=== PATIENT | female | born 1985 | race Caucasian/White ===

== ENCOUNTER 2021-08-18 11:41 | Emergency (ER) | payer BC, SELFPAY ==
[2021-08-18 11:59] VITALS: BP 123/66; PULSE 96; RESP 18; TEMP 37.1; O2SAT 100
--- NOTE | 2021-08-18 12:36 | ED.GENADULT ---
HPI - General Adult General Chief complaint: Ear Stated complaint: sorethroat,bilateral ear pain Source: patient Mode of arrival: ambulatory Limitations: no limitations History of Present Illness HPI narrative: Patient is a 35-year-old female who presents to the [facility] via POV for evaluation of upper respiratory symptoms that have been present for approximately 3 days. Additionally, she reports hoarseness, left-sided throat pain, and right-sided ear pain. She states her throat pain is scratchy in nature and ear pain is burning in nature. OTC meds provide some relief. Symptoms worsen at night. Related Data Home Medications Medication Instructions Recorded Confirmed drospirenone-ethinyl estradiol 1 tablet PO DAILY 08/18/21 08/18/21 Allergies Allergy/AdvReac Type Severity Reaction Status Date / Time No Known Allergies Allergy Verified 08/18/21 12:24 Review of Systems Review of Systems: Denies fever, chills, sweats, change in appetite, myalgias, headaches, dizziness, sinus problems, hearing difficulty, tinnitus, vertigo, nasal drainage, sneezing, drooling, difficulty swallowing, cough, wheezing, shortness of breath, abdominal pain, nausea, vomiting, diarrhea, chest pain, heart palpitation PMFSH Past Medical History Medical History (Updated 08/18/21 @ 13:09 by Stephenie Chin, EXECUTIVE CONSULTANT, ) Anemia Comments I have reviewed and agree with the patient's past medical, surgical, social, and family hx as documented by the RN. There is no relevant family history pertinent to the presenting complaint. Exam Narrative: GENERAL: Well-appearing, well-nourished, and in no acute distress. Appears fatigued HEAD: Normocephalic, atraumatic. No sinus tenderness or facial swelling appreciated. EYES: PERRLA and EOMI. No evidence of erythema, swelling, or drainage. ENT: Bilateral external ears and ear canals normal. Bilateral TMs are normal.No TM perforation. Nares clear, no rhinorrhea or epistaxis. Bilateral turbinates without erythema/ swelling. Mucous membranes moist and pink. Uvula is midline without erythema and swelling. Moderate erythema and swelling noted to left tonsil otherwise posterior pharynx is normal. Breath odor normal. Voice is mildly hoarse NECK: Supple. No Lymphadenopathy or nuchal rigidity appreciated. CHEST: Bilateral lung bean are clear to auscultation. No respiratory distress. No evidence of cough or pleuritic cp upon examination. HEART: Regular rate and rhythm. No murmur, gallop, or rub heard. EXTREMITIES: Normal range of motion. No edema. SKIN: Warm, dry, no rash. NEURO: No focal deficits. Alert and oriented x3. Course Course Level of Care: Express Care Visit Vital Signs Vital signs: Vital Signs Temperature 98.7 F 08/18/21 11:59 Pulse Rate 96 08/18/21 11:59 Respiratory Rate 18 08/18/21 11:59 Blood Pressure 123/66 08/18/21 11:59 Pulse Oximetry 100 08/18/21 11:59 Temperature 98.7 F 08/18/21 11:59 Pulse Rate 96 08/18/21 11:59 Respiratory Rate 18 08/18/21 11:59 Blood Pressure 123/66 08/18/21 11:59 Pulse Oximetry 100 08/18/21 11:59 Reviewed Medical Decision Making MDM Narrative Medical decision making narrative: EAR IRRIGATION NOT PERFORMED THEREFORE PEROXIDE WAS NOT USED. Differential Diagnosis Differential Diagnosis: Allergic rhinitis, ABRS, acute viral sinusitis, strep pharyngitis, nasopharyngitis, bronchitis, pneumonia, AOM, otitis externa, viral URI, influenza, covid-19 Medical Records Medical records reviewed: Yes I reviewed the external patient's medical records. Vital Signs Vital Signs: Vital Signs Temperature 98.7 F 08/18/21 11:59 Pulse Rate 96 08/18/21 11:59 Respiratory Rate 18 08/18/21 11:59 Blood Pressure 123/66 08/18/21 11:59 Pulse Oximetry 100 08/18/21 11:59 Temperature 98.7 F 08/18/21 11:59 Pulse Rate 96 08/18/21 11:59 Respiratory Rate 18 08/18/21 11:59 Blood Pressure 123/66 08/18/21 11:59 Puls
== END 2021-08-18 13:14 | disposition home or self-care (01) ==
PROVIDERS: Emergency Provider Nurse Practitioner Family; PCP Nurse Practitioner Family
DX: J06.9 Acute upper respiratory infection, unspecified (principal); Z20.822 Contact with and (suspected) exposure to COVID-19
CPT/HCPCS: 87426; 99213; A9270; C9803; G0463

== ENCOUNTER 2021-12-26 09:52 | Emergency (ER) | payer BC, SELFPAY ==
[2021-12-26 10:04] VITALS: BP 109/57; PULSE 97; RESP 16; TEMP 37; O2SAT 100
--- NOTE | 2021-12-26 10:28 | ED.EAR ---
HPI - Ear Problem General Chief complaint: Ear Stated complaint: ear pain Time Seen by Provider: 12/26/21 10:28 Source: patient Mode of arrival: ambulatory Limitations: no limitations History of Present Illness HPI Narrative: 36-year-old female presents with complaint of right ear pain for 4 days. Reports that she has had issues with her allergies, sinus congestion, nasal congestion, postnasal drainage for 2 to 3 weeks. Denies fever chills. Is taking Claritin daily. Denies changes to hearing. All systems reviewed and negative except as noted above. Related Data Allergies Allergy/AdvReac Type Severity Reaction Status Date / Time No Known Allergies Allergy Verified 11/24/21 10:23 Review of Systems Review of Systems: CONSTITUTIONAL: Denies fever, chills, or sweats. EYES: Denies visual changes, redness, or discharge. ENT: Reports rhinorrhea, congestion, and right ear pain. Denies sore throat. CARDIOVASCULAR: Denies chest pain, palpitations, or edema. RESPIRATORY: Denies cough or dyspnea. GASTROINTESTINAL: Denies abdominal pain, nausea, vomiting, or diarrhea. GENITOURINARY: Denies dysuria or hematuria. SKIN: Denies rash or itching. MUSCULOSKELETAL: Denies back pain, joint pain, or myalgia. NEUROLOGIC: Denies headache, numbness, or weakness. PSYCHIATRIC: Denies anxiety or depression. All other systems reviewed are negative, except as documented in HPI. 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 There is no relevant family history pertinent to the presenting complaint. Exam Narrative: GENERAL: This is a well-nourished, well-developed patient, in no apparent distress. HEAD: normocephalic, atraumatic. EYES: PERRL. Sclera clear/white. Vision is grossly intact. EARS: External ears normal, auditory canals clear and without drainage, fluid to right TM with mild erythema. Left TM is normal. No perforation. NOSE: External nose normal with clear nasal drainage, erythema to nares. THROAT: Mucous membranes moist, clear postnasal drainage noted. NECK: Neck supple, non-tender without lymphadenopathy, masses or thyromegaly. CARDIOVASCULAR: Regular rate and rhythm without murmurs, gallops, or rubs. RESPIRATORY: Clear to auscultation. Breath sounds equal bilaterally. No wheezes, rales, or rhonchi. SKIN: warm, Dry, intact with no suspicious lesions or rash, good texture and turgor. NEURO: awake, alert, and oriented to person, place and time. There were no obvious focal neurologic abnormalities. EXTREMITIES: Normal range of motion to all extremities. Course Course Level of Care: Express Care Visit Vital Signs Vital signs: Vital Signs Temperature 37.0 C 12/26/21 10:04 Pulse Rate 97 12/26/21 10:04 Respiratory Rate 16 12/26/21 10:04 Blood Pressure 109/57 L 12/26/21 10:04 Pulse Oximetry 100 12/26/21 10:04 Oxygen Delivery Room Air 12/26/21 10:04 Temperature 37.0 C 12/26/21 10:04 Pulse Rate 97 12/26/21 10:04 Respiratory Rate 16 12/26/21 10:04 Blood Pressure 109/57 L 12/26/21 10:04 Pulse Oximetry 100 12/26/21 10:04 Oxygen Delivery Room Air 12/26/21 10:04 Reviewed Medical Decision Making MDM Narrative
== END 2021-12-26 10:41 | disposition home or self-care (01) ==
PROVIDERS: Emergency Provider Nurse Practitioner Family; PCP Nurse Practitioner Family
DX: H65.01 Acute serous otitis media, right ear (principal); J01.90 Acute sinusitis, unspecified
CPT/HCPCS: 99213; G0463

== ENCOUNTER 2022-06-08 09:34 | Emergency (ER) | payer BC, SELFPAY ==
[2022-06-08 09:45] VITALS: BP 113/63; PULSE 115; RESP 12; TEMP 37.1; O2SAT 100
--- NOTE | 2022-06-08 09:57 | ED.URI ---
HPI - URI/Sore Throat General Chief Complaint: Upper Respiratory Infection Stated Complaint: Sore Throat, Headache, Bodyaches Time Seen by Provider: 06/08/22 09:57 Source: patient, RN notes reviewed and old records reviewed Mode of arrival: ambulatory Limitations: no limitations History of Present Illness HPI Narrative: 36-year-old female presents to the [facility] with fever and sore throat for the last 2-3 days. Has been exposed to flu. 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 Daughter tested positive last week. MD elicited complaint: fever and sore throat Related Data Allergies Allergy/AdvReac Type Severity Reaction Status Date / Time amoxicillin Allergy Intermediate Hives Verified 06/08/22 10:05 Review of Systems Review of Systems: All systems reviewed & are unremarkable except as noted in HPI and below Constitutional: Constitutional: Reports as per HPI, Denies chills and Reports fever(s) Eyes: Eyes: Reports no additional eye complaints ENT: Reports as per HPI and Reports sore throat Cardiovascular: Cardiovascular: Reports no additional cardiovascular complaints Respiratory: Respiratory: Reports no additional respiratory complaints Gastrointestinal: Gastrointestinal: Reports no additional gastrointestinal complaints Musculoskeletal: Musculoskeletal: Reports no additional musculoskeletal complaints Integumentary/Breasts: Skin/Breast: Reports system reviewed and no additional complaints, except as docu Neurologic: Reports system reviewed and no additional complaints, except as documented Psychiatric: Psychiatric: Reports no additional psychiatric complaints Allergic/Immunologic: Allergic/Immunologic: Reports no additional allergic/immunologic complaints [facility] Past Medical History Medical History Anemia Surgical History Surgical History Delivery by section Family History Family History Other Malignant neoplasm of prostate Social History Social History Smoking status: Never smoker Alcohol intake: never Substance use: never Substance use type: does not use 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 There is no relevant family history pertinent to the patient complaint. Exam Const: General: healthy appearing, comfortable, no acute distress, well developed, alert and well nourished Nutritional Appearance: well nourished Orientation/consciousness: patient oriented x3 Limitations: no limitations HENMT: Head: normal to inspection Ears: external ears normal, TM's normal bilaterally and EAC's normal Face/Nose/Sinus: Normal external nose present and Normal nares present Face and sinus: normal facial exam Mouth: Yes Normal oral and palatal mucosa present, Yes lip normal and Yes moist mucous membranes Teeth and gingiva: dentition normal Throat: posterior oropharynx normal and uvula midline Eyes: General: appearance normal, both eyes and all related structures Conjunctivae: conjunctivae normal Pupils: Equal, round and reactive pupils present Neck: Neck: normal visual inspection, full ROM, no lymphadenopathy and no meningeal signs Chest: Chest palpation & inspection: normal inspection of the chest Resp: Effort & Inspection: normal respiratory effort and no use of accessory muscles Auscultation: clear to auscultation bilaterally, no crackles, no rales, no rhonchi and no wheezes Cardio: Rate: regular rate Rhythm: regular rhythm Back/Spine/Pelvis: Cervical Spine: cervical ROM normal and No Cervical spine tenderness Th
== END 2022-06-08 10:19 | disposition home or self-care (01) ==
PROVIDERS: Emergency Provider Nurse Practitioner; PCP Nurse Practitioner Family
DX: J10.1 Influenza due to other identified influenza virus with other respiratory manifestations (principal)
CPT/HCPCS: 87081; 87804; 87880; 99213; G0463

== ENCOUNTER 2023-04-05 08:50 | Emergency (ER) | payer OTHER, SELFPAY ==
--- NOTE | 2023-04-05 08:58 | ED.FEMALEGU ---
HPI - Female Genitourinary General Chief complaint: Urogenital-Female Stated complaint: urinary issue Time Seen by Provider: 04/05/23 08:50 Source: patient Mode of arrival: ambulatory Limitations: no limitations History of Present Illness HPI Narrative: Elvie is a 37-year-old female patient presenting to the clinic today with complaints of possible urinary tract infection. She reports she is having some bilateral flank pain, as a pressure in her bladder. Reports the symptoms started on Wednesday. She has taking some [id number] Urostat to help alleviate symptoms. That she may have urinary tract infection verses pulled muscle in her back as she does work out and do yoga. Related Data Allergies Allergy/AdvReac Type Severity Reaction Status Date / Time amoxicillin Allergy Intermediate Hives Verified 02/23/23 09:36 Review of Systems Review of Systems: Pertinent positives per HPI. Patient denies any fever, chills, rash, headache, visual changes, dizziness, cough, runny nose, sore throat, shortness of breath, chest pain, palpitations, nausea, vomiting, diarrhea, constipation, abdominal pain, or any urinary issues. [facility] Past Medical History Medical History Anemia Surgical History Surgical History Delivery by section H/O gynecological procedure mirena iud insertion 11/25/2022 mirena IUD removal 01/01/23 Family History Family History Father Pancreas cancer Father Liver cancer Mother Hypothyroid Social History Social History Smoking status: Never smoker Alcohol intake: current Alcohol use details: rarely Substance use: never Substance use type: does not use Lack of Transportation: No Lack of Food: Never True Current Housing: I Have Housing Concerned About Future Housing: No Difficulty Paying Gas/Electric Bills: No Difficulty Paying for Meds: No Currently Unemployed: No Education: Trade/Vocational Certificate Difficulty w/ Childcare or Family Care: No Living arrangements: with family Occupation/Education: occupation 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 There is no relevant family history pertinent to the patient complaint. Exam Narrative: General: Well-developed, well nourished, in no apparent distress. Head: Normocephalic, atraumatic. Cardio: Regular rate and rhythm, s1 and s2 normal, no murmur appreciated. Resp: Clear to auscultation bilaterally, no rhonchi, rales, wheezing or rubs. Abdomen: Soft, pliable, bowel sounds present in all quadrants, non-tender to palpation, no organomegly, + bilateral CVAT tenderness. Course Course Emergency Course: Portions of this record may have been created with voice recognition software. Level of Care: Express Care Visit Vital Signs Vital signs: Vital signs reviewed MDM - Female Genitourinary MDM Narrative Medical decision making narrative: At the time of visit patient is resting comfortably on exam table. Pre UA was positive for 1+ leukocyte and trace of blood. I suspect patient may have a urinary tract infection. Will place the patient on Bactrim. Supportive measures were discussed with the patient she voiced understanding discharge instructions and agrees to treatment plan. Differential Diagnosis Differential diagnosis: Likely urinary tract infection, cystitis and other (Pyelonephritis, back strain) Discharge Plan Discharge Clinical Impression: Acute urinary tract infection
[2023-04-05 09:00] VITALS: BP 115/70; PULSE 110; RESP 16; TEMP 36.8; O2SAT 100
== END 2023-04-05 09:17 | disposition home or self-care (01) ==
PROVIDERS: Emergency Provider Nurse Practitioner Family; PCP Nurse Practitioner Family
DX: N39.0 Urinary tract infection, site not specified (principal)
CPT/HCPCS: 81003; 87077; 87086; 87186; 99213; G0463